=== PATIENT | male | born 2000 | race African-American/Black ===

== ENCOUNTER 2023-04-07 00:46 | Emergency (ER) | payer SELFPAY ==
[~2023-04-07] VITALS: Ht 190.5 cm; Wt 87.0 kg
[2023-04-07 00:48] VITALS: BP 155/92
[2023-04-07] MEDS ORDERED: IBUPROFEN 600MG TABLET ONE (03:47)
[2023-04-07] MEDS ORDERED: TETANUS, DIPHTHERIA, PERTUSSIS VAC/PF 0.5ML (>10YR OLD) IM ONE (03:49)
[2023-04-07] MEDS ORDERED: NEOM28.37 TP (04:43)
[2023-04-07] MEDS ORDERED: IBUP-2029 MT (04:43)
== END 2023-04-07 04:12 | disposition home or self-care (01) ==
LOC: ER 00:46
DX: S01.511A Laceration without foreign body of lip, initial encounter (principal); W26.0XXA Contact with knife, initial encounter; Y93.89 Activity, other specified; Y92.89 Other specified places as the place of occurrence of the external cause; Y99.8 Other external cause status
CPT/HCPCS: 12011; 90471; 90715; 99283; Z7610; 99282